=== PATIENT | female | born 1960 | race Two or more races ===

== ENCOUNTER 2017-08-04 10:21 | Outpatient (CLI) | payer OTHER ==
[~2017-08-04 10:21] MED LIST: CEFADROXIL500 MG PO
== END 2017-08-04 10:32 | disposition home or self-care (01) ==
LOC: MRI 10:21
DX: C40.22 Malignant neoplasm of long bones of left lower limb (principal)
CPT/HCPCS: 73718

== ENCOUNTER 2020-10-18 07:37 | Outpatient (CLI) | payer OTHER | END 2020-10-18 07:47 | disposition home or self-care (01) | LOC: TOM 07:37 | DX: J44.9 Chronic obstructive pulmonary disease, unspecified (principal) ==

== ENCOUNTER 2020-11-22 07:17 | Outpatient (CLI) | payer OTHER | END 2020-11-22 07:35 | disposition home or self-care (01) | LOC: NUCLEAR 07:17 | PROVIDERS: ATTEND Internal Medicine Pulmonary Disease | DX: R91.1 Solitary pulmonary nodule (principal); Z72.0 Tobacco use | CPT/HCPCS: 78816; A9552 ==

== ENCOUNTER 2021-01-23 15:14 | Outpatient (CLI) | payer OTHER | END 2021-01-23 15:21 | disposition home or self-care (01) | LOC: LAB 15:14 | PROVIDERS: ATTEND Orthopaedic Surgery | DX: D64.89 Other specified anemias (principal); M06.4 Inflammatory polyarthropathy ==

== ENCOUNTER 2021-01-24 08:08 | Outpatient (CLI) | payer OTHER | END 2021-01-24 08:10 | disposition home or self-care (01) | LOC: SONOGRAMA 08:08 | PROVIDERS: ATTEND Orthopaedic Surgery | DX: M25.552 Pain in left hip (principal); Z96.642 Presence of left artificial hip joint ==

== ENCOUNTER 2021-07-29 08:22 | Outpatient (CLI) | payer OTHER | END 2021-07-29 08:31 | disposition home or self-care (01) | LOC: LAB 08:22 | PROVIDERS: ATTEND Orthopaedic Surgery | DX: D64.9 Anemia, unspecified (principal); E88.9 Metabolic disorder, unspecified; D68.8 Other specified coagulation defects; N39.0 Urinary tract infection, site not specified; A49.02 Methicillin resistant Staphylococcus aureus infection, unspecified site; E11.9 Type 2 diabetes mellitus without complications; I10 Essential (primary) hypertension; I49.9 Cardiac arrhythmia, unspecified ==

== ENCOUNTER 2021-08-07 11:15 | Inpatient (IN) | payer OTHER ==
[~2021-08-07] VITALS: Ht 160 cm; Wt 55.8 kg
[2021-08-07] MEDS ORDERED: LOSARTAN-HCTZ1 EACH PO (16:09)
[2021-08-07] MEDS ORDERED: ZETIA10 MG PO (16:09)
[2021-08-07] MEDS ORDERED: CRESTOR40 MG PO (16:09)
== END 2021-08-14 14:20 | DRG 470 ==
LOC: SURH 08-12 07:00 → O/R 08-12 09:17 → SURH 08-12 11:15
PROVIDERS: ADMIT Orthopaedic Surgery; ATTEND Orthopaedic Surgery
PROC: 0SR90JZ Replacement of Right Hip Joint with Synthetic Substitute, Open Approach (ICD-10-PCS; principal; 2021-08-12 07:00)
DX: M16.11 Unilateral primary osteoarthritis, right hip (principal); I10 Essential (primary) hypertension; Z20.822 Contact with and (suspected) exposure to COVID-19

== ENCOUNTER 2021-11-13 14:14 | Outpatient (CLI) | payer OTHER ==
[~2021-11-13 14:14] MED LIST changes: +CRESTOR40 MG PO; +LOSARTAN-HCTZ1 EACH PO; +ZETIA10 MG PO
== END 2021-11-13 14:20 | disposition home or self-care (01) ==
LOC: RAD 14:14
PROVIDERS: ATTEND Orthopaedic Surgery
DX: Z96.643 Presence of artificial hip joint, bilateral (principal)

== ENCOUNTER 2021-12-27 14:29 | Outpatient (CLI) | payer OTHER | END 2021-12-27 14:36 | disposition home or self-care (01) | LOC: RAD 14:29 | PROVIDERS: ATTEND Orthopaedic Surgery | DX: M79.641 Pain in right hand (principal); M79.642 Pain in left hand; M18.11 Unilateral primary osteoarthritis of first carpometacarpal joint, right hand; M18.12 Unilateral primary osteoarthritis of first carpometacarpal joint, left hand ==

== ENCOUNTER 2022-03-25 09:05 | Outpatient (CLI) | payer OTHER | END 2022-03-25 09:13 | disposition home or self-care (01) | LOC: RAD 09:05 | DX: M79.672 Pain in left foot (principal) ==

== ENCOUNTER 2023-11-03 07:04 | Outpatient (CLI) | payer OTHER | END 2023-11-03 07:13 | disposition home or self-care (01) | LOC: TOM 07:04 | DX: R91.1 Solitary pulmonary nodule (principal) | CPT/HCPCS: 71260; Q9965 ==

== ENCOUNTER 2023-12-01 08:46 | Outpatient (CLI) | payer OTHER ==
[~2023-12-01 08:46] MED LIST changes: +ALENDRONATE SOD70 MG; +CLONAZEPAM1 MG; +COZAAR25 MG; +COZAAR50 MG PO; +CRESTOR10 MG; +DICLOFENAC POTA50 MG; +IBU800 MG PO; +LOSARTAN-HCTZ1 EACH; +MELOXICAM15 MG; +NORFLEX100MG PO; +XARELTO10 M1; +ZETIA10 MG
== END 2023-12-01 08:54 | disposition home or self-care (01) ==
LOC: MRI 08:46
DX: G30.0 Alzheimer's disease with early onset (principal)
CPT/HCPCS: 70551

== ENCOUNTER 2024-02-08 10:21 | Emergency (ER) | payer OTHER ==
[~2024-02-08] VITALS: Ht 154.9 cm; Wt 61.7 kg
[2024-02-08 13:26] LABS: HEMATOCRIT 41.7 % (36.0-45.00); HEMOGLOBIN 13.8 g/dL (12.0-15.00); MEAN CELL VOLUME 86.6 fL (80.00-100.00); MEAN CORPUSCULAR HEMOGLOBIN 28.7 pg (27.00-32.0); MEAN CORPUSCULAR HGB CONC 33.1 g/dl (32.0-36.0); PLATELET COUNT 311 K/uL (150-450); RED BLOOD COUNT 4.81 M/uL (4.00-6.00); RED CELL DISTRIBUTION WIDTH 14.3 % (11.5-14.5)
[2024-02-08] MEDS ORDERED: ZITHROMAX500 MG PO (15:20)
[2024-02-08] MEDS ORDERED: PEPCID AC20 MG PO (15:24)
[2024-02-08] MEDS ORDERED: ZOVIRAX5 GM TOP (15:38)
== END 2024-02-08 16:36 | disposition home or self-care (01) ==
LOC: ER 10:23
PROVIDERS: General Practice
DX: R53.81 Other malaise (principal); J00 Acute nasopharyngitis [common cold]; Z20.822 Contact with and (suspected) exposure to COVID-19; I10 Essential (primary) hypertension

== ENCOUNTER 2024-03-25 11:16 | Outpatient (CLI) | payer OTHER ==
[~2024-03-25 11:16] MED LIST changes: +PEPCID AC20 MG PO; +ZITHROMAX500 MG PO; +ZOVIRAX5 GM TOP
== END 2024-03-25 11:23 | disposition home or self-care (01) ==
LOC: RAD 11:16
PROVIDERS: ATTEND Orthopaedic Surgery
DX: Z96.643 Presence of artificial hip joint, bilateral (principal)

== ENCOUNTER → 2024-05-27 09:27 | Outpatient (CLI) | payer OTHER | END | disposition home or self-care (01) | LOC: NUCLEAR 09:27 | PROVIDERS: ATTEND Internal Medicine Pulmonary Disease | DX: C34.90 Malignant neoplasm of unspecified part of unspecified bronchus or lung (principal) | CPT/HCPCS: 78582; A9540; A9567 ==

== ENCOUNTER 2024-06-01 07:39 | Outpatient (CLI) | payer OTHER | END 2024-06-01 07:40 | disposition home or self-care (01) | LOC: NUCLEAR 07:39 | PROVIDERS: ATTEND Internal Medicine Pulmonary Disease | DX: C34.90 Malignant neoplasm of unspecified part of unspecified bronchus or lung (principal) | CPT/HCPCS: 78816; A9552 ==

== ENCOUNTER 2024-10-18 06:42 | Outpatient (CLI) | payer OTHER ==
[2024-10-18 08:28] LABS: CHOL HDL RATIO 2.7 (0-5.0); HDL 69.0 mg/dl (40-60); LDL 101.0 mg/dl (0-130); VLDL 18.0 (0-39)
== END 2024-10-18 06:43 | disposition home or self-care (01) ==
LOC: LAB 06:42
DX: E78.00 Pure hypercholesterolemia, unspecified (principal)

== ENCOUNTER 2024-10-18 07:14 | Outpatient (CLI) | payer OTHER | END 2024-10-18 07:15 | disposition home or self-care (01) | LOC: NUCLEAR 07:14 | PROVIDERS: ATTEND Internal Medicine | DX: I11.9 Hypertensive heart disease without heart failure (principal) | CPT/HCPCS: 78452; 93017; A9500 ==

== ENCOUNTER → 2024-12-29 11:06 | Outpatient (CLI) | payer OTHER ==
[2024-12-29 12:39] LABS: CREATININE SERUM 0.47 mg/dL (0.55-1.02)
== END | disposition home or self-care (01) ==
LOC: LAB 11:06
PROVIDERS: ATTEND Radiology Diagnostic Radiology
DX: R91.1 Solitary pulmonary nodule (principal)

== ENCOUNTER → 2025-01-16 | Outpatient (CLI) | payer OTHER | END | disposition home or self-care (01) | LOC: TOM 07:08 | DX: R91.1 Solitary pulmonary nodule (principal) | CPT/HCPCS: 71260; Q9965 ==